=== PATIENT | male | born 1995 | race Caucasian/White ===

== ENCOUNTER 2016-10-14 18:43 | Emergency (ER) | payer OTHER ==
[~2016-10-14] VITALS: Ht 177.8 cm; Wt 75.1 kg
[~2016-10-14 18:43] MED LIST: ASPIRIN; CEPH-368 PO; ONDA4TAB7 PO; OXYC5CAP4 PO; STOOL SOFTENER
[2016-10-14 18:55] VITALS: BP 123/74
[2016-10-14] MEDS ORDERED: LIDOCAINE 1%, 20ML ONE (19:27)
[2016-10-14] MEDS ORDERED: DIPH,PERTUSS(ACELL),TET VAC/PF 0.5 ML IM-VACC ONE ×2 (19:27→19:30)
[2016-10-14] MEDS ORDERED: LIDOCAINE 1%, 20ML SQ ONE (19:30)
[2016-10-14] MEDS ORDERED: BACITRACIN ZINC OINT 500U/GM, 0.9 GM ONE (20:02)
== END 2016-10-14 20:22 | disposition home or self-care (01) ==
LOC: ED 20:00
DX: S61.411A Laceration without foreign body of right hand, initial encounter (principal); W21.89XA Striking against or struck by other sports equipment, initial encounter; Y93.67 Activity, basketball; Y99.8 Other external cause status; Y92.89 Other specified places as the place of occurrence of the external cause; Z23 Encounter for immunization
CPT/HCPCS: 12001; 90471; 90715